=== PATIENT | male | born 1965 ===

== ENCOUNTER → 2019-01-22 | Outpatient (CLI) | payer OTHER | END | disposition home or self-care (01) | LOC: CT 09:24 | DX: S42.101A Fracture of unspecified part of scapula, right shoulder, initial encounter for closed fracture (principal); M62.511 Muscle wasting and atrophy, not elsewhere classified, right shoulder; M75.101 Unspecified rotator cuff tear or rupture of right shoulder, not specified as traumatic; X58.XXXA Exposure to other specified factors, initial encounter; Y93.89 Activity, other specified; Y92.89 Other specified places as the place of occurrence of the external cause; Y99.8 Other external cause status | CPT/HCPCS: 73200 ==